=== PATIENT | female | born 1965 | race Two or more races ===

== ENCOUNTER 2018-09-26 11:54 | Emergency (ER) | payer SELFPAY ==
[~2018-09-26] VITALS: Ht 154.9 cm; Wt 79.8 kg
[2018-09-26 12:10] VITALS: BP 145/92
--- NOTE | 2018-09-26 12:10 | NUR ---
ED Nurse Note: A/OX4. AMBULATED IN TO ER DUE TO DIZZINESS AND RIGHT EARACHE. PT HAS RINGING IN THE EAR, HAS DIARRHEA AND CHILLS. DENIES CP.
--- NOTE | 2018-09-26 13:04 | Emergency Room Report ---
History of Present Illness General Chief Complaint: Flu Like Symptoms Source: Patient Present Illness HPI 52-year-old female patient presents the ER with multiple complaints. Patient reports right earache and left earache symptoms, worse in the right ear, for the past 4 days. Denies ear drainage. Reports "ringing" in her ear. Denies cough. Also reports dizziness during that time. Reports room spinning. Denies vomiting or vision changes. Denies recent injury or trauma. Also complaining of intermittent epigastric pain for the past few days. Denies vomiting. Reports diarrhea for the past few days.. Denies blood in diarrhea. Denies recent travel outside the country. Denies fever, chest pain, shortness of breath. Denies other aggravating or relieving factors. Reports able to pass flatus. Reports history of diabetes, states she takes medications. Also complains of generalized body aches. Reports to not receive flu vaccine this year. Denies fever, chest pain, shortness of breath. Allergies: Coded Allergies: No Known Allergies (Unverified , 09/26/18) Patient History Past Medical History: see triage record Reviewed Nursing Documentation: PMH: Agreed; PSxH: Agreed Nursing Documentation-PMH Hx Diabetes: Yes Review of Systems All Other Systems: negative except mentioned in HPI Physical Exam Vital Signs Date Time Temp Pulse Resp B/P (MAP) Pulse Ox O2 Delivery O2 Flow Rate FiO2 09/26/18 12:07 98.2 109 20 145/92 96 Room Air Sp02 EP Interpretation: reviewed, normal General Appearance: well appearing, no apparent distress, alert, GCS 15, non- toxic Head: normocephalic, atraumatic Eyes: bilateral eye normal inspection, bilateral eye PERRL ENT: hearing grossly normal, normal pharynx, no angioedema, normal voice, uvula midline, moist mucus membranes Neck: full range of motion, no meningismus, no bony tend Respiratory: lungs clear, normal breath sounds, no rhonchi, no respiratory distress, no accessory muscle use, no wheezing, speaking full sentences Cardiovascular #1: regular rate, rhythm, no edema Gastrointestinal: normal bowel sounds, soft, no mass, non-distended, no guarding, no rebound, tenderness - epigastric, mild, other - negative rovsing, negative obturator, negative valdez Genitourinary: no CVA tenderness Musculoskeletal: back normal, digits/nails normal, gait/station normal, normal range of motion, non-tender Neurologic: alert, oriented x3, responsive, surgery assistant III-XII nml as tested, motor strength/tone normal, sensory intact, cerebellar normal, normal gait, speech normal Psychiatric: mood/affect normal Skin: no rash Lymphatic: no adenopathy Medical Decision Making PA Attestation Dr. Trent is my supervising Physician whom patient management has been discussed with. Diagnostic Impression: Primary Impression: Influenza-like symptoms Additional Impressions: Enteritis Dizziness Vertigo ER Course Pt. presents to the ED c/o dizziness, influenza like-symptoms, diarrhea, vertigo. Ddx considered but are not limited to orthostatic dizziness, vertigo, hypoglycemia, electrolyte abnormality, arrhythmia, medication side effect, , anemia, MT. Low suspicion for PE per well's criteria. Negative Kernig, negative Brudzinski, low suspicion for meningitis. Vital signs: are WNL, pt. is afebrile, patient slightly tachycardic, will continue to monitor. ER COURSE: Provided with zofran. Orthostatic vitals not consistent with orthostatic hypotension. Elevated blood sugar on Accu-Chek, provide with metformin, patient states she did not take her metformin earlier today. EKG shows tachycardia, no ST elevations or T wave inversions consistent with MT. Chest x-ray negative for acute disease. CBC and CMP unremarkable, no elevation WBCs or LFTs, mild elevation in H&H, no anemia, no electrolyte abnormalities, blood glucose elevated. UA unremarkable, low suspicion for UTI. Urine negative. Troponin negative, low suspicion for MT. Chest x-ray shows no acute disease per the preliminary reading. CT head negative for acute intracranial bleed or mass-effect. CT abdomen pelvis shows enteritis as well as other findings. Discuss results with the patient. Provided patient with copy of results. Instructed patient to followup with PCP and discuss results of report with patient, discuss need for further treatment and referral. Patient signs and symptoms consistent with influenza like disease, advised on supportive treatment. Patient had symptoms longer than 48 hours, would not benefit from Tamiflu. Denies recent travel outside the country. Denies blood in stool. Does not require antibiotics at this time. Enteritis causing symptoms. Take Tylenol for pain symptoms. Will provide meclizine for vertigo symptoms. Follow-up with neurologist. ER precautions given. Patient vital signs stable prior to discharge. Patient able tolerate p.o. fluids prior to discharge. DISCHARGE: At this time pt is stable for d/c to home. Patient is resting comfortably, in no acute distress, nontoxic appearing, talking without difficulty. Patient to take medications as instructed Will provide with patient care instructions and any necessary prescriptions. Care plan and follow-up instructions provided. Patient instructed to follow-up with primary care provider in 3 - 5 days. Patient questions asked and answered. Patient reports understanding and agreement to treatment plan. ER precautions given. Patient instructed to return to ER immediately for any new or worsening of symptoms including but not limited to increasing SOB, persistent fever, chest pain, intractable vomiting. - Please note that this Emergency Department Report was dictated using AppSpot[employer] technology software, occasionally this can lead to erroneous entry secondary to interpretation by the dictation equipment. Labs Test 09/26/18 12:45 09/26/18 13:10 Urine Color Pale yellow Urine Appearance Clear Urine pH 5 (4.5-8.0) Urine Specific [place] 1.015 (1.005-1.035) Urine Protein Negative (NEGATIVE) Urine Glucose (UA) 4+ (NEGATIVE) Urine Ketones Negative (NEGATIVE) Urine Blood Negative (NEGATIVE) Urine Nitrite Negative (NEGATIVE) Urine Bilirubin Negative (NEGATIVE) Urine Urobilinogen Normal MG/DL (0.0-1.0) Urine Leukocyte Esterase Negative (NEGATIVE) Urine HCG, Qualitative Negative (NEGATIVE) White Blood Count 8.5 K/UL (4.8-10.8) Red Blood Count 5.96 M/UL (4.20-5.40) Hemoglobin 17.8 G/DL (12.0-16.0) Hematocrit 53.4 % (37.0-47.0) Mean Corpuscular Volume 90 FL (80-99) Mean Corpuscular Hemoglobin 29.9 PG (27.0-31.0) Mean Corpuscular Hemoglobin Concent 33.3 G/DL (32.0-36.0) Red Cell Distribution Width 11.4 % (11.6-14.8) Platelet Count 254 K/UL (150-450) Mean Platelet Volume 7.7 FL (6.5-10.1) Neutrophils (%) (Auto) 79.5 % (45.0-75.0) Lymphocytes (%) (Auto) 15.2 % (20.0-45.0) Monocytes (%) (Auto) 4.0 % (1.0-10.0) Eosinophils (%) (Auto) 0.9 % (0.0-3.0) Basophils (%) (Auto) 0.4 % (0.0-2.0) Sodium Level 133 MMOL/L (136-145) Potassium Level 4.2 MMOL/L (3.5-5.1) Chloride Level 98 MMOL/L (98-107) Carbon Dioxide Level 22 MMOL/L (21-32) Anion Gap 13 mmol/L (5-15) Blood Urea Nitrogen 18 mg/dL (7-18) Creatinine 0.8 MG/DL (0.55-1.30) Estimat Glomerular Filtration Rate > 60 mL/min (>60) Glucose Level 374 MG/DL (74-106) Calcium Level 9.3 MG/DL (8.5-10.1) Total Bilirubin 0.4 MG/DL (0.2-1.0) Aspartate Amino Transf (AST/SGOT) 18 U/L (15-37) Alanine Aminotransferase (ALT/SGPT) 30 U/L (12-78) Alkaline Phosphatase 124 U/L (46-116) Troponin I 0.000 ng/mL (0.000-0.056) Total Protein 8.4 G/DL (6.4-8.2) Albumin 3.7 G/DL (3.4-5.0) Globulin 4.7 g/dL Albumin/Globulin Ratio 0.8 (1.0-2.7) EKG Diagnostic Results Rate: tachycardiac Rhythm: NSR ST Segments: no acute changes ASA given to the pt in ED: No PA Scribe Text Naun Zimmer PA-C Rhythm Strip Diag. Results EP Interpretation: yes Rate: 111 Rhythm: NSR, no PVC's, no ectopy PA Scribe Text Naun Zimmer PA-C Chest X-Ray Diagnostic Results Chest X-Ray Diagnostic Results : Chest X-Ray Ordered: Yes # of Views/Limited/Complete: 1 View Indication: Chest Pain EP Interpretation: Yes PA Xray: Interpretation reviewed, by supervising MD, and agrees with findings. Interpretation: no consolidation, no effusion, no pneumothorax, no acute cardiopulmonary disease Impression: No acute disease PA Scribe Text Naun Zimmer PA-C CT/MRI/US Diagnostic Results CT/MRI/US Diagnostic Results #1: Imaging Test Ordered: CT head Impression Impression: Negative for acute intracranial bleed or mass effect Minimal right-sided mastoid disease CT/MRI/US Diagnostic Results #2: Imaging Test Ordered: CT abdomen pelvis with contrast Impression Impression: Limited assessment of the GI tract, due to lack of enteric contrast administration Mildly prominent fluid-filled small bowel loops with equivocal mild wall thickening, could indicate enteritis changes Equivocal gastric wall thickening, most likely an artifact of under distention but could indicate mild gastritis changes Slightly enlarged liver. Slight hypoattenuation may indicate fatty change Patchy left basilar groundglass opacities, acuity indeterminant, could represent patchy areas of inflammation or chronic postinflammatory changes. There is also minimal basilar dependent atelectasis Incidental finding of minimal degenerative spondylosis Last Vital Signs Date Time Temp Pulse Resp B/P (MAP) Pulse Ox O2 Delivery O2 Flow Rate FiO2 09/26/18 12:10 109 20 Room Air 09/26/18 12:10 98.2 145/92 96 Status: improved Disposition: HOME, SELF-CARE Condition: Stable Scripts Meclizine Hcl* (MECLIZINE*) 25 Mg Tablet 25 MG ORAL THREE TIMES A DAY, #25 TAB Prov: Asif Zimmer 09/26/18 Acetaminophen* (TYLENOL EXTRA STRENGTH*) 500 Mg Tablet 500 MG ORAL Q8H PRN for Prn Headache/Temp > 101, #30 TAB 0 Refills Prov: Asif Zimmer 09/26/18 Patient Instructions: Diarrhea, Adult, Duzi-[id number], Dizziness, [id number], Influenza, Adult, [id number] Additional Instructions: Followup with primary care provider in 3 -5 days. Take medications as directed. Patient questions asked and answered. ER precautions given, patient instructed to return to ER immediately for any new or worsening of symptoms. Asif Zimmer Sep 26, 2018 13:04
[2018-09-26] MEDS ORDERED: Isovue-300 100ml vial INJ PRN (13:30)
[2018-09-26] MEDS ORDERED: metFORMIN 500mg tab ORAL ONE (13:30)
[2018-09-26 13:39] LABS: APPEARANCE,URINE CLEAR; BILIRUBIN, URINE NEGATIVE (NEGATIVE); COLOR,URINE PALE YELLOW; GLUCOSE, URINE (UA) 4+ (NEGATIVE); KETONES,URINE NEGATIVE (NEGATIVE); LEUKOCYTE ESTERASE ,URINE NEGATIVE (NEGATIVE); NITRITE,URINE NEGATIVE (NEGATIVE); PH,URINE 5 (4.5-8.0); PROTEIN,URINE NEGATIVE (NEGATIVE); UROBILINOGEN,URINE NORMAL MG/DL (0.0-1.0)
[2018-09-26 14:03] LABS: BASOPHILS % (AUTO) 0.4 % (0.0-2.0); EOSINOPHILS % (AUTO) 0.9 % (0.0-3.0); HEMATOCRIT 53.4 % (37.0-47.0); HEMOGLOBIN 17.8 G/DL (12.0-16.0); LYMPHOCYTES % (AUTO) 15.2 % (20.0-45.0); MEAN CORPUSCULAR VOLUME 90 FL (80-99); NEUTROPHILS % (AUTO) 79.5 % (45.0-75.0); PLATELET COUNT 254 K/UL (150-450); RED BLOOD COUNT 5.96 M/UL (4.20-5.40); RED CELL DISTRIBUTION WIDTH 11.4 % (11.6-14.8); WHITE BLOOD COUNT 8.5 K/UL (4.8-10.8)
[2018-09-26 14:17] LABS: ANION GAP 13 mmol/L (5-15); BLOOD UREA NITROGEN 18 mg/dL (7-18); CALCIUM 9.3 MG/DL (8.5-10.1); CARBON DIOXIDE 22 MMOL/L (21-32); CHLORIDE 98 MMOL/L (98-107); CREATININE 0.8 MG/DL (0.55-1.30); POTASSIUM 4.2 MMOL/L (3.5-5.1); SODIUM 133 MMOL/L (136-145)
[2018-09-26 14:22] LABS: ALANINE AMINOTRANSFERASE 30 U/L (12-78); ALBUMIN 3.7 G/DL (3.4-5.0); ALBUMIN/GLOBULIN RATIO 0.8 (1.0-2.7); ALKALINE PHOSPHATASE 124 U/L (46-116); ASPARTATE AMINO TRANSFERASE 18 U/L (15-37); BILIRUBIN,TOTAL 0.4 MG/DL (0.2-1.0)
--- NOTE | 2018-09-26 14:42 | Diagnostic Imaging Report ---
Indications: Dizziness Technique: Spiral acquisitions obtained through the brain. Angled axial and coronal 5 x 5 mm slices were reconstructed. Total dose length product 1326.82 mGycm. CTDI vol(s) 70.38 mGy. Dose reduction achieved using automated exposure control Comparison: None. Findings: No acute intracranial hemorrhage nor edema, mass effect, nor midline shift demonstrated. Old lacunar infarct versus prominent perivascular space is seen in the left basal ganglia region. Normal wellington-white differentiation. Normal-sized ventricles and extra axial CSF spaces. Intact calvarium. The left mastoids are clear. There is minimal mastoid disease on the right. Visualized orbits and sinuses are clear. Impression: Negative for acute intracranial bleed or mass effect Minimal right-sided mastoid disease The CT scanner at [facility] is accredited by the [employer] and the scans are performed using protocols designed to limit radiation exposure to as low as reasonably achievable to attain images of sufficient resolution adequate for diagnostic evaluation.
--- NOTE | 2018-09-26 15:45 | Diagnostic Imaging Report ---
Clinical Indication: Intermittent epigastric pain for the past view days Technique: No oral contrast utilized, per emergency room physician request IV administration nonionic contrast. Venous phase spiral acquisition obtained through the abdomen and pelvis. Multiplanar reconstructions were generated. Total dose length product 803.4 mGycm. CTDIvol(s) 14.79 mGy. Dose reduction achieved using automated exposure control Comparison: none Findings: Lack of enteric contrast limits assessment of the GI tract. No evidence of diverticulosis or diverticulitis. The appendix is not definitely identified, but there are no findings to suggest acute appendicitis. Small bowel loops are diffusely fluid-filled, per limits normal in caliber but not frankly dilated. Proximal jejunal loops are equivocally somewhat thick walled with slight mural enhancement. The stomach is incompletely distended, apparent mild wall thickening is probably an artifact of such. The duodenum and distal esophagus are unremarkable. No free or loculated intraperitoneal gas or fluid is evident. The liver is slightly hypoattenuating. No focal abnormality. It is somewhat enlarged. The gallbladder is nondistended. The bile ducts, pancreas, spleen, adrenals, kidneys are all unremarkable. No retroperitoneal or mesenteric mass or adenopathy. No pelvic mass or adenopathy. Uterus and ovaries are unremarkable. The included lung bases demonstrate posterior dependent atelectatic changes. Some patchy groundglass opacities are seen at the left lung base. The bones demonstrate minimal degenerative spondylosis changes. Impression: Limited assessment of the GI tract, due to lack of enteric contrast administration Mildly prominent fluid-filled small bowel loops with equivocal mild wall thickening, could indicate enteritis changes Equivocal gastric wall thickening, most likely an artifact of under distention but could indicate mild gastritis changes Slightly enlarged liver. Slight hypoattenuation may indicate fatty change Patchy left basilar groundglass opacities, acuity indeterminant, could represent patchy areas of inflammation or chronic postinflammatory changes. There is also minimal basilar dependent atelectasis Incidental finding of minimal degenerative spondylosis The CT scanner at [facility] is accredited by the [employer] and the scans are performed using protocols designed to limit radiation exposure to as low as reasonably achievable to attain images of sufficient resolution adequate for diagnostic evaluation.
[2018-09-26] MEDS ORDERED: MECLIZINE HCL25 MG ORAL (16:46)
[2018-09-26] MEDS ORDERED: TYLENOL EXTRA500 MG ORAL (16:46)
--- NOTE | 2018-09-26 16:58 | NUR ---
ED Nurse Note: A/Ox4. Pt is cleared by LEONA Magallon. DC instruction and prescriptions given, pt verbalized understanding. IV/ID wristband removed. All belongings taken by pt. Denies pain at this time. Pt ambulated out of ER with steady gait.
[2018-09-26 16:59] VITALS: BP 138/78
--- NOTE | 2018-09-26 17:10 | NUR ---
ED Nurse Note: PT CAME BACK AND REQUESTED SOMETHING FOR NAUSEA AND RECEIVED ORDER FOR ZOFRAN 4MG PO. ADMINISTERED TO PT. PT VOMITTED X1, NOTIFIED LEONA ROD
--- NOTE | 2018-09-26 17:24 | NUR ---
ED Nurse Note: PT STATES THAT SHE FEELS BETTER. ORAL CHALLENGED DONE PER LEONA ROD'S ORDER. PT WAS TOLERATING OK WITH ORAL FLUID. LEONA ROD STAES THAT SHE CAN BE DISCHARGED. PT AMBULATED OUT OF ER WITH STEADY GAIT.
--- NOTE | 2018-09-26 17:32 | Diagnostic Imaging Report ---
Indication: Shortness of breath Technique: One view of the chest Comparison: none Findings: There is some atelectasis at the left lateral lung base. The heart is borderline enlarged. Lungs and pleural spaces are otherwise clear. Impression: Borderline cardiac megaly Left lateral basilar atelectasis
== END 2018-09-26 16:59 | disposition home or self-care (01) ==
LOC: EMR 13:10
DX: H92.03 Otalgia, bilateral (principal); K52.9 Noninfective gastroenteritis and colitis, unspecified; R42 Dizziness and giddiness; H93.19 Tinnitus, unspecified ear; R10.13 Epigastric pain; E11.9 Type 2 diabetes mellitus without complications; M79.10 Myalgia, unspecified site; R00.0 Tachycardia, unspecified; R16.0 Hepatomegaly, not elsewhere classified
CPT/HCPCS: 36415; 70450; 71045; 74177; 80053; 81003; 81025; 82962; 84484; 85025; 93005; 96360; 96361; 99284; Q9967

== ENCOUNTER 2019-02-27 07:47 | Emergency (ER) | payer MEDICAID ==
[~2019-02-27] VITALS: Ht 165.1 cm; Wt 78.0 kg
[~2019-02-27 07:47] MED LIST: MECLIZINE HCL25 MG ORAL; TYLENOL EXTRA500 MG ORAL
[2019-02-27 07:51] VITALS: BP 153/95
[2019-02-27] MEDS ORDERED: METFORMIN HCL500 M4 ORAL (07:53)
--- NOTE | 2019-02-27 07:57 | NUR ---
ED Nurse Note: Patient walked into ED c/o right leg pain for 4 days. patient denies any injury. patient is alert awake x4 ambulatory.
[2019-02-27] MEDS ORDERED: ROBAXIN-750750 MG PO (08:05)
[2019-02-27] MEDS ORDERED: NAPROXEN250 MG ORAL (08:05)
--- NOTE | 2019-02-27 08:05 | Emergency Room Report ---
History of Present Illness General Chief Complaint: Pain Source: Patient Present Illness HPI 53-year-old female possible history of diabetes, presents with right leg pain that started 4 days prior to arrival, worse with movement alleviated with rest, she denies any fever/chills, she endorses that sharp pain in the right thigh that radiates down her right leg, no focal weakness, no cough congestion, patient presents for evaluation Allergies: Coded Allergies: No Known Allergies (Unverified , 09/26/18) Patient History Past Medical History: see triage record Reviewed Nursing Documentation: PMH: Agreed; PSxH: Agreed Nursing Documentation-PMH Past Medical History: No History, Except For Hx Diabetes: Yes Review of Systems Musculoskeletal: Reports: muscle pain All Other Systems: negative except mentioned in HPI Physical Exam Vital Signs Date Time Temp Pulse Resp B/P (MAP) Pulse Ox O2 Delivery O2 Flow Rate FiO2 02/27/19 07:51 97.9 77 19 153/95 (114) 96 Room Air Sp02 EP Interpretation: reviewed, normal General Appearance: well appearing, no apparent distress, alert Head: normocephalic, atraumatic Eyes: bilateral eye PERRL, bilateral eye EOMI ENT: uvula midline, moist mucus membranes Neck: supple, thyroid normal, supple/symm/no masses Respiratory: lungs clear, no respiratory distress, no retraction, no accessory muscle use Cardiovascular #1: normal peripheral pulses, regular rate, rhythm, no edema, no gallop, no murmur Gastrointestinal: non tender, soft, no guarding, no rebound Musculoskeletal: normal inspection, other - Right lower external knee: 2+ patellar reflexes, ankle reflex, sensation intact, 5 out of 5 strength plantar dorsiflexion of the ankle, knee, patient's gait is intact, she has slight tenderness to palpation over the anterior aspect of the right thigh, and tenderness to palpation right lateral calf, no erythema Neurologic: alert, oriented x3 Psychiatric: mood/affect normal Skin: no rash, warm/dry Medical Decision Making Diagnostic Impression: Primary Impression: Right leg pain ER Course 53-year-old female presents with right leg pain, neurovascular exam intact, may be musculoskeletal versus some form of neuropathy, patient does not know what her A1c is, her neurovascular exam is intact, patient is able to ambulate without issues, reflexes are intact, strength is intact, sensation is intact, slight tenderness to palpation in the muscle, possible muscle strain Last Vital Signs Date Time Temp Pulse Resp B/P (MAP) Pulse Ox O2 Delivery O2 Flow Rate FiO2 02/27/19 07:51 97.9 77 19 153/95 96 Room Air Disposition: HOME, SELF-CARE Condition: Stable Scripts Methocarbamol* (ROBAXIN-750*) 750 Mg Tablet 750 MG PO QID, #28 TAB 0 Refills Prov: Julito Maradiaga M.D. 02/27/19 Naproxen* (NAPROSYN*) 250 Mg Tablet 250 MG ORAL BID PRN for For Pain, #20 TAB 0 Refills Prov: Julito Maradiaga M.D. 02/27/19 Referrals: [facility] Patient Instructions: Muscle Strain, [id number], Quadriceps Contusion, Easy- to-Read, Sciatica, [id number] Additional Instructions: The patient was provided with discharge instructions, notified to follow-up with a primary care doctor and or specialist in the next 24-48 hours, and to return to the ED if they have worsening of their symptoms. Please note that this report is being documented using [email or web address] technology. This can lead to erroneous entry secondary to incorrect interpretation by the dictating instrument. Julito Maradiaga M.D. Feb 27, 2019 08:05
[2019-02-27 08:10] VITALS: BP 153/95
--- NOTE | 2019-02-27 08:13 | NUR ---
ER DISCHARGE NOTE: Patient is cleared to be discharged per ERMD DR MOSQUEDA, pt is aox4, on room air, with stable vital signs. pt was given dc and prescription instructions, pt was able to verbalize understanding, pt id band removed without complications. pt is able to ambulate with steady gait. pt took all belongings.
[2019-02-27] MEDS ORDERED: Acetaminophen 500mg (ES) tab ORAL ONE (08:15)
== END 2019-02-27 08:10 | disposition home or self-care (01) ==
LOC: EMR 08:03
DX: M79.604 Pain in right leg (principal); E11.9 Type 2 diabetes mellitus without complications
CPT/HCPCS: 99282